=== PATIENT | male | born 1965 | race Caucasian/White ===

== ENCOUNTER 2023-03-10 08:43 | Outpatient (CLI) | payer BC | END 2023-03-10 08:44 | disposition home or self-care (01) | LOC: SCSMRI 08:43 | PROVIDERS: ATTEND Nurse Practitioner Family | DX: M51.16 Intervertebral disc disorders with radiculopathy, lumbar region (principal); M51.37 Other intervertebral disc degeneration, lumbosacral region; M48.061 Spinal stenosis, lumbar region without neurogenic claudication; M48.07 Spinal stenosis, lumbosacral region | CPT/HCPCS: 72148 ==